=== PATIENT | male | born 1990 | race African-American/Black ===

== ENCOUNTER 2018-05-28 08:21 | Emergency (ER) | payer SELFPAY ==
[~2018-05-28] VITALS: Ht 190.5 cm; Wt 91.0 kg
[2018-05-28] MEDS ORDERED: AZITHROMYCIN 500 MG TABLET PO ONE (09:15)
[2018-05-28] MEDS ORDERED: CEFTRIAXONE SODIUM 250 MG/VIAL IM ONE (09:15)
[2018-05-28] MEDS ORDERED: LIDOCAINE HCL 1% 20ML VIAL (Pyxis) INJ INFIL ONE (09:30)
[2018-05-28 09:35] VITALS: BP 141/99
[2018-05-30 04:13] LABS: CHLAMYDIA TRACHOMATIS NAA Negative (Negative); NEISSERIA GONORRHOEAE NAA Negative (Negative)
== END 2018-05-28 09:43 | disposition home or self-care (01) ==
LOC: ER 08:40
DX: R39.15 Urgency of urination (principal)
CPT/HCPCS: 87491; 87591; 96372; 99283; J0696; J3490